=== PATIENT | male | born 1960 | race Caucasian/White ===

== ENCOUNTER 2017-09-15 16:17 | Emergency (ER) | payer SELFPAY ==
[2017-09-15 17:06] LABS: PTT 33.8 SEC (22.9-36.1)
[2017-09-15 17:07] LABS: INR-International Normal Ratio 2.1; Prothrombin Time 23.3 SEC (12.0-14.7)
[2017-09-15 17:09] LABS: D-Dimer Test Less than 0.27 *mcg/mL (0.27-0.43)
[2017-09-15] MEDS ORDERED: methylPREDNISolone Sod Succ/PF 125 MG/2 ML VIAL ONE (17:20)
== END 2017-09-15 17:35 | disposition home or self-care (01) ==
LOC: MADERS 16:17
DX: M25.511 Pain in right shoulder (principal); Z86.711 Personal history of pulmonary embolism; Z86.718 Personal history of other venous thrombosis and embolism; F17.210 Nicotine dependence, cigarettes, uncomplicated; Z79.899 Other long term (current) drug therapy; Z79.82 Long term (current) use of aspirin
CPT/HCPCS: 36415; 85379; 85610; 85730; 96372; J2930

== ENCOUNTER 2018-09-23 13:09 | Emergency (ER) | payer OTHER, SELFPAY ==
[2018-09-23] MEDS ORDERED: Adacel (T-DAP) 0.5 ML SYRINGE ONE (13:21)
[2018-09-23] MEDS ORDERED: Bupivacaine PF 0.5% 30 ML VIAL ONE (13:22)
--- NOTE | 2018-09-23 13:38 | RAD ---
XR Hand Lt 3 View STANDARD: 09/23/2018 1:23 PM CLINICAL INDICATION: Crush injuries to the second through fourth digits COMPARISON: None. TECHNIQUE: 3 views. Laterality: Left. FINDINGS: Bones: No acute osseous abnormality. 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 Soft Tissue: There is soft tissue swelling involving the dorsal aspects of the index through ring fin henrique. There are densities within the soft tissues of the left ring finger, dorsal to the DIP joint, suspicious for surface artifact or embedded radiopaque foreign debris.. IMPRESSION: No acute osseous abnormality.. Soft tissue injury to the left index through ring finger.
[2018-09-23] MEDS ORDERED: Bacitracin 1 PK ONE (14:08)
== END 2018-09-23 14:23 | disposition home or self-care (01) ==
LOC: MADERS 13:09
DX: S61.215A Laceration without foreign body of left ring finger without damage to nail, initial encounter (principal); F17.210 Nicotine dependence, cigarettes, uncomplicated; Z86.711 Personal history of pulmonary embolism; Z86.718 Personal history of other venous thrombosis and embolism; Z23 Encounter for immunization; W23.0XXA Caught, crushed, jammed, or pinched between moving objects, initial encounter
CPT/HCPCS: 12002; 90471; 90715; S0020

== ENCOUNTER 2019-05-22 09:53 | Emergency (ER) | payer SELFPAY ==
--- NOTE | 2019-05-22 10:46 | RAD ---
PORTABLE CHEST 1 VIEW: Date: 05/22/2019 Time: 1034 hours HISTORY: Cough. FINDINGS/IMPRESSION: The heart size is normal. The lungs are expanded without lobar consolidation, pneumothoraces, or pleu ral effusions. POS: [facility]
== END 2019-05-22 10:44 | disposition home or self-care (01) ==
LOC: MADERS 09:53
DX: J01.00 Acute maxillary sinusitis, unspecified (principal); F17.210 Nicotine dependence, cigarettes, uncomplicated; Z86.711 Personal history of pulmonary embolism; Z86.73 Personal history of transient ischemic attack (TIA), and cerebral infarction without residual deficits
CPT/HCPCS: 71045

== ENCOUNTER 2022-03-28 06:01 | Emergency (ER) | payer SELFPAY ==
[2022-03-28 06:44] LABS: #Basophils 0.1 thou/uL (0.0-0.2); #Eosinphils 0.2 thou/uL (0.0-0.7); #Lymphocytes 1.9 thou/uL (1.20-3.40); #Monocytes 0.8 thou/uL (0.11-0.59); #Neutrophils 11.6 thou/uL (1.40-6.50); %Basophils 0.7 % (0.0-1.0); %Lymphocytes 13.1 % (21.0-51.0); %Monocytes 5.8 % (0.0-10.0); %Neutrophils 79.4 % (42.0-75.0); Hemoglobin 17.9 g/dL (14.0-18.0); Mean Corpuscular HGB CONC 33.4 g/dL (32.0-36.0); Mean Corpuscular Hemoglobin 29.5 pg (27.0-31.0); Mean Corpuscular Volume 88.4 fl (78.0-98.0); Mean Platelet Volume 6.9 fL (7.4-10.4); Platelet Count 309 10x3/uL (130-400); RBC Distribution Width 12.1 % (11.5-14.5); Red Blood Cell (RBC) Count 6.08 mill/uL (4.70-6.10); White Blood Cell (WBC) Count 14.6 10x3/uL (4.8-10.8)
[2022-03-28] MEDS ORDERED: Sodium Chloride 0.9% 1,000 ML ONE ×2 (06:54→08:47)
[2022-03-28 06:57] LABS: Bilirubin Negative (Negative); Blood, Urine Moderate (Negative); Clarity Clear (Clear); Glucose, Urine (Dipstick) Negative (Negative); Ketone, Urine Negative (Negative); Leukocyte Negative (Negative); Nitrite Negative (Negative); Protein, Urine (Dipstick) Negative (Neg-Trace); Specific Gravity, Urine 1.025 (1.005-1.030); Urobilinogen 0.2 mg/dL (Less than 2)
[2022-03-28 07:02] LABS: ALT (SGPT) 24 U/L (8-55); AST (SGOT) 16 U/L (5-34); Albumin 4.4 g/dL (3.4-4.8); Alkaline Phosphatase 47 U/L (40-110); Anion Gap 16 mmol/L (10-20); BUN (Urea Nitrogen) 18 mg/dL (8.4-25.7); Bilirubin, Total 0.6 mg/dL (0.2-1.2); Calc. Creatinine Clearance 0 mL/min (70-130); Calcium 9.8 mg/dL (7.8-10.44); Carbon Dioxide 23 mmol/L (23-31); Chloride 105 mmol/L (98-107); Estimated GFR 98; Glucose 121 mg/dL (80-115); Lipase 58 U/L (8-78); Potassium 4.4 mmol/L (3.5-5.1); Protein, Total 7.4 g/dL (5.8-8.1); Sodium 140 mmol/L (136-145)
[2022-03-28 07:05] LABS: INR-International Normal Ratio 2.2; Prothrombin Time 25.2 sec (12.0-14.7)
[2022-03-28 07:06] LABS: PTT 35.9 sec (22.9-36.1)
[2022-03-28 07:23] LABS: Bacteria/HPF Rare-Few HPF (None Seen); Squamous Epithelial 0-3 HPF (0-3); WBC/HPF 0-3 HPF (0-3)
[2022-03-28] MEDS ORDERED: Dicyclomine 20 MG/2 ML VIAL ONE (08:47)
[2022-03-28] MEDS ORDERED: Ketorolac Tromethamine 30 MG/ML VIAL ONE (09:13)
[2022-03-28] MEDS ORDERED: Mag-Al Plus 1200 MG/1200 MG/120 MG/30 ML UDCUP ONE (09:55)
[2022-03-28] MEDS ORDERED: Lidocaine Viscous Sol 2% 15 ml UD Cup ONE (09:55)
== END 2022-03-28 10:33 | disposition home or self-care (01) ==
LOC: MADERS 06:01
DX: R10.9 Unspecified abdominal pain (principal); D72.829 Elevated white blood cell count, unspecified; Z86.711 Personal history of pulmonary embolism; Z86.718 Personal history of other venous thrombosis and embolism; F17.210 Nicotine dependence, cigarettes, uncomplicated; Z79.01 Long term (current) use of anticoagulants; Z79.82 Long term (current) use of aspirin
CPT/HCPCS: 74176; 80053; 81003; 81015; 83605; 83690; 85025; 85610; 85730; 96361; 96372; 96374; J1885; J7050

== ENCOUNTER 2023-03-19 09:11 | Emergency (ER) | payer SELFPAY ==
[2023-03-19] MEDS ORDERED: Dexamethasone 10 MG/ML VIAL ONE (09:37)
[2023-03-19 10:21] LABS: SARS-CoV-2 NAA Rapid Test Not Detected (NotDetected)
== END 2023-03-19 10:40 | disposition home or self-care (01) ==
LOC: MADERS 09:11
DX: J02.9 Acute pharyngitis, unspecified (principal); F17.210 Nicotine dependence, cigarettes, uncomplicated
CPT/HCPCS: 87081; 87430; 99283; J1100; U0002

== ENCOUNTER 2023-11-21 12:19 | Emergency (ER) | payer SELFPAY ==
[~2023-11-21 12:19] MED LIST: Iopamidol 370 76% 100 ML VIAL ONE
[2023-11-21] MEDS ORDERED: Albuterol 200 PUFF (6.7GM INHALER) ONE (13:26)
[2023-11-21 13:36] LABS: #Basophils 0.1 thou/uL (0.0-0.2); #Eosinphils 0.1 thou/uL (0.0-0.7); #Lymphocytes 1.6 thou/uL (1.20-3.40); #Monocytes 0.9 thou/uL (0.11-0.59); #Neutrophils 14.4 thou/uL (1.40-6.50); %Basophils 0.7 % (0.0-1.0); %Eosinophils 0.8 % (0.0-10.0); %Lymphocytes 9.4 % (21.0-51.0); %Monocytes 5.4 % (0.0-10.0); %Neutrophils 83.6 % (42.0-75.0); Hematocrit 49.9 % (42.0-52.0); Hemoglobin 15.6 g/dL (14.0-18.0); Mean Corpuscular HGB CONC 31.2 g/dL (32.0-36.0); Mean Corpuscular Hemoglobin 28.6 pg (27.0-31.0); Mean Corpuscular Volume 91.6 fl (78.0-98.0); Mean Platelet Volume 6.6 fL (7.4-10.4); Platelet Count 347 10x3/uL (130-400); RBC Distribution Width 13.1 % (11.5-14.5); Red Blood Cell (RBC) Count 5.45 mill/uL (4.70-6.10); White Blood Cell (WBC) Count 17.2 10x3/uL (4.8-10.8)
[2023-11-21 13:38] LABS: INR-International Normal Ratio 3.1
[2023-11-21 13:39] LABS: PTT 56.2 sec (22.9-36.1)
[2023-11-21 13:48] LABS: ALT (SGPT) 19 U/L (8-55); AST (SGOT) 13 U/L (5-34); Albumin 3.6 g/dL (3.4-4.8); Alkaline Phosphatase 49 U/L (40-110); Anion Gap 15 mmol/L (10-20); BUN (Urea Nitrogen) 19 mg/dL (8.4-25.7); Bilirubin, Total 0.4 mg/dL (0.2-1.2); Calc. Creatinine Clearance 0 mL/min (70-130); Calcium 9.8 mg/dL (7.8-10.44); Carbon Dioxide 22 mmol/L (23-31); Chloride 107 mmol/L (98-107); Estimated GFR 90; Glucose 131 mg/dL (80-115); Potassium 4.1 mmol/L (3.5-5.1); Protein, Total 7.6 g/dL (5.8-8.1); Sodium 140 mmol/L (136-145)
[2023-11-21] MEDS ORDERED: Sodium Chloride 0.9% 100 ML ONE (14:42)
[2023-11-21] MEDS ORDERED: cefTRIAXone (ROCEPHIN) 2 GM VIAL ONE (14:42)
== END 2023-11-21 15:21 | disposition home or self-care (01) ==
LOC: MADERS 12:19
DX: J18.1 Lobar pneumonia, unspecified organism (principal); R59.0 Localized enlarged lymph nodes; E78.5 Hyperlipidemia, unspecified; I26.99 Other pulmonary embolism without acute cor pulmonale; F17.210 Nicotine dependence, cigarettes, uncomplicated; Z79.01 Long term (current) use of anticoagulants; Z79.899 Other long term (current) drug therapy
CPT/HCPCS: 71046; 71260; 80053; 83605; 85025; 85610; 85730; 87040; 96365; J0696; Q9967

== ENCOUNTER 2024-01-26 09:40 | Emergency (ER) | payer SELFPAY ==
[2024-01-26] MEDS ORDERED: Amoxicillin/Potassium Clav 875 MG TAB ONE (10:35)
== END 2024-01-26 10:45 | disposition home or self-care (01) ==
LOC: MADERS 09:40
DX: J01.10 Acute frontal sinusitis, unspecified (principal); F17.210 Nicotine dependence, cigarettes, uncomplicated
CPT/HCPCS: 99283

== ENCOUNTER 2024-04-14 09:34 | Emergency (ER) | payer SELFPAY | END 2024-04-14 10:35 | disposition home or self-care (01) | LOC: MADERS 09:34 | DX: J01.90 Acute sinusitis, unspecified (principal); J18.9 Pneumonia, unspecified organism; F17.210 Nicotine dependence, cigarettes, uncomplicated; I48.91 Unspecified atrial fibrillation; E78.00 Pure hypercholesterolemia, unspecified; Z79.01 Long term (current) use of anticoagulants; Z79.899 Other long term (current) drug therapy; Z79.82 Long term (current) use of aspirin | CPT/HCPCS: 99283 ==

== ENCOUNTER 2025-01-31 17:36 | Emergency (ER) | payer SELFPAY ==
[2025-01-31] MEDS ORDERED: Ondansetron PF 4 MG/2 ML Vial ONE (18:07)
[2025-01-31 18:30] LABS: Glucose, Urine (Dipstick) Negative (Negative); Leukocyte Negative (Negative); Protein, Urine (Dipstick) Negative (Neg-Trace); Specific Gravity, Urine 1.015 (1.005-1.030)
[2025-01-31 18:37] LABS: Bacteria/HPF Rare-Few HPF (None Seen); CAUTI Indications for Culture Pelvic or flank pain; Urine Culture Reflex No No; WBC/HPF 0-3 HPF (0-3)
[2025-01-31 18:38] LABS: Hematocrit 62.2 % (42.0-52.0); Hemoglobin 19.1 g/dL (14.0-18.0); Mean Corpuscular Hemoglobin 28.4 pg (27.0-31.0); Mean Corpuscular Volume 92.2 fl (78.0-98.0); Platelet Count 324 10x3/uL (130-400); Red Blood Cell (RBC) Count 6.75 mill/uL (4.70-6.10); White Blood Cell (WBC) Count 14.4 10x3/uL (4.8-10.8)
[2025-01-31 18:46] LABS: MDiff Complete? YES; Manual Diff?? YES
[2025-01-31 18:47] LABS: Platelet Adequacy Comment Appears Adequate
[2025-01-31 18:50] LABS: ALT (SGPT) 29 U/L (Less than 45); AST (SGOT) 26 U/L (11-34); Albumin 4.8 g/dL (3.1-4.5); Alkaline Phosphatase 53 U/L (40-110); Anion Gap 19 mmol/L (10-20); BUN (Urea Nitrogen) 21 mg/dL (8.4-25.7); Bilirubin, Total 0.6 mg/dL (0.3-1.2); Calc. Creatinine Clearance 0 mL/min (70-130); Calcium 9.6 mg/dL (7.8-10.44); Carbon Dioxide 26 mmol/L (23-31); Chloride 102 mmol/L (98-107); Globulin 3.2 g/dL (2.4-3.5); Glucose 113 mg/dL (80-115); Lipase 50 U/L (8-78); Potassium 4.4 mmol/L (3.5-5.1); Sodium 143 mmol/L (136-145)
[2025-01-31] MEDS ORDERED: Acetaminophen 500 MG TAB ONE (18:52)
[2025-02-02 00:20] LABS: Campy jejuni + coli by PCR Negative (Negative); STEC Shiga Toxin 1+2 Negative (Negative); Salmonella spp. by PCR Negative (Negative); Shigella spp + EIEC by PCR Negative (Negative)
== END 2025-01-31 20:45 | disposition short-term general hospital (02) ==
LOC: MADERS 17:36
DX: R10.11 Right upper quadrant pain (principal); I48.91 Unspecified atrial fibrillation; E78.00 Pure hypercholesterolemia, unspecified; F17.210 Nicotine dependence, cigarettes, uncomplicated; Z79.82 Long term (current) use of aspirin; Z79.01 Long term (current) use of anticoagulants; Z79.899 Other long term (current) drug therapy
CPT/HCPCS: 74177; 80053; 81001; 83605; 83690; 85025; 87040; 87505; 93005; 96365; 96375; J2405; J2543; J7030; Q9967

== ENCOUNTER 2025-02-02 08:27 | Emergency (ER) | payer SELFPAY ==
[2025-02-02 08:49] LABS: Glucose, Urine (Dipstick) Negative (Negative); Leukocyte Negative (Negative); Protein, Urine (Dipstick) Negative (Neg-Trace); Specific Gravity, Urine 1.025 (1.005-1.030)
[2025-02-02 08:53] LABS: Bacteria/HPF Rare-Few HPF (None Seen); CAUTI Indications for Culture Pelvic or flank pain; WBC/HPF 0-3 HPF (0-3)
[2025-02-02 08:55] LABS: RBC/HPF 21-50 HPF (0-3)
[2025-02-02 08:56] LABS: Urine Culture Reflex No No
[2025-02-02 09:00] LABS: #Basophils 0.1 thou/uL (0.0-0.2); #Eosinophils 0.1 thou/uL (0.0-0.7); #Lymphocytes 1.3 thou/uL (1.20-3.40); #Monocytes 0.5 thou/uL (0.11-0.59); #Neutrophils 3.5 thou/uL (1.40-6.50); %Basophils 1.0 % (0.0-1.0); %Eosinophils 2.5 % (0.0-10.0); %Lymphocytes 23.9 % (21.0-51.0); %Monocytes 8.9 % (0.0-10.0); %Neutrophils 63.7 % (42.0-75.0); Hematocrit 55.5 % (42.0-52.0); Hemoglobin 17.2 g/dL (14.0-18.0); Mean Corpuscular Hemoglobin 28.2 pg (27.0-31.0); Mean Corpuscular Volume 90.9 fl (78.0-98.0); Platelet Count 253 10x3/uL (130-400); Red Blood Cell (RBC) Count 6.11 mill/uL (4.70-6.10); White Blood Cell (WBC) Count 5.5 10x3/uL (4.8-10.8)
[2025-02-02] MEDS ORDERED: Diphenoxylate HCl/Atropine Tablet ONE ×2 (09:08→09:09)
[2025-02-02] MEDS ORDERED: Ondansetron PF 4 MG/2 ML Vial ONE (09:08)
[2025-02-02] MEDS ORDERED: Ketorolac Tromethamine 30 MG (1 mL) VIAL ONE (09:08)
[2025-02-02 09:17] LABS: INR-International Normal Ratio 2.0; Prothrombin Time 22.4 sec (12.0-14.7)
[2025-02-02 09:18] LABS: PTT 42.5 sec (22.9-36.1)
[2025-02-02 09:20] LABS: ALT (SGPT) 32 U/L (Less than 45); AST (SGOT) 34 U/L (11-34); Albumin 4.2 g/dL (3.1-4.5); Alkaline Phosphatase 48 U/L (40-110); Anion Gap 15 mmol/L (10-20); BUN (Urea Nitrogen) 14 mg/dL (8.4-25.7); Bilirubin, Total 0.3 mg/dL (0.3-1.2); Calc. Creatinine Clearance 0 mL/min (70-130); Calcium 8.7 mg/dL (7.8-10.44); Carbon Dioxide 22 mmol/L (23-31); Chloride 108 mmol/L (98-107); Globulin 3.1 g/dL (2.4-3.5); Glucose 99 mg/dL (80-115); Lipase 20 U/L (8-78); Magnesium 2.0 mg/dL (1.6-2.6); Potassium 3.9 mmol/L (3.5-5.1); Sodium 141 mmol/L (136-145)
== END 2025-02-02 10:19 | disposition home or self-care (01) ==
LOC: MADERS 08:27
DX: K52.9 Noninfective gastroenteritis and colitis, unspecified (principal); K80.50 Calculus of bile duct without cholangitis or cholecystitis without obstruction; I48.91 Unspecified atrial fibrillation; E78.5 Hyperlipidemia, unspecified; I82.409 Acute embolism and thrombosis of unspecified deep veins of unspecified lower extremity; F17.210 Nicotine dependence, cigarettes, uncomplicated
CPT/HCPCS: 80053; 81001; 82550; 83690; 83735; 85025; 85610; 85730; 87324; 87449; 94760; 96361; 96374; 96375; J1885; J2405; J7120